=== PATIENT | female | born 1935 | race Caucasian/White ===

== ENCOUNTER 2020-10-11 12:18 | Outpatient (CLI) | payer MEDICARE, SELFPAY ==
--- NOTE | ~2020-10-11 | US_ITS ---
EXAMINATION: US venous doppler [facility] DATE: 10/11/2020 13:20 INDICATION: Bilateral lower limb edema TECHNIQUE: Echols scale images without and with compression and Doppler images of the bilateral lower e xtremity veins were obtained. COMPARISON: 01/29/2015 FINDINGS: The right common femoral vein, profunda femoral vein, femoral vein, popliteal vein, peroneal trunk, p osterior tibial veins, and greater saphenous vein are patent. The left common femoral vein, profunda femoral vein, femoral vein, popliteal vein, peroneal trunk, po sterior tibial veins, and greater saphenous vein are patent. IMPRESSION: 1. Patent bilateral lower extremity veins. No evidence of deep venous thrombosis. Reviewed, dictated and finalized at location A. IMPRESSION: 1. Patent bilateral lower extremity veins. No evidence of deep venous thrombosi s.
== END 2020-10-11 12:19 | disposition home or self-care (01) ==
LOC: ANHIMG 12:22
PROVIDERS: PCP Family Medicine; Visit Provider Nurse Practitioner Family
DX: R60.0 Localized edema (principal)
CPT/HCPCS: 93970